=== PATIENT | male | born 1970 | race Caucasian/White ===

== ENCOUNTER → 2016-07-09 | Outpatient (CLI) | payer BC | END | disposition home or self-care (01) | LOC: YCFC.O 09:12 | PROVIDERS: ATTEND Nurse Practitioner Family | DX: M19.90 Unspecified osteoarthritis, unspecified site (principal); E03.9 Hypothyroidism, unspecified; F41.1 Generalized anxiety disorder; E16.2 Hypoglycemia, unspecified ==

== ENCOUNTER → 2017-07-27 | Outpatient (CLI) | payer BC | LOC: LAB.O 11:20 | PROVIDERS: ATTEND Nurse Practitioner Family | DX: E03.9 Hypothyroidism, unspecified (principal) ==

== ENCOUNTER → 2018-06-05 | Outpatient (CLI) | payer BC | LOC: LAB.O 11:05 | PROVIDERS: ATTEND Nurse Practitioner Family | DX: I10 Essential (primary) hypertension (principal); E03.9 Hypothyroidism, unspecified ==

== ENCOUNTER → 2019-08-11 | Outpatient (CLI) | payer BC ==
--- NOTE | 2019-08-12 09:24 | RAD ---
EXAM DESCRIPTION: Lumbar Spine 3 Views CLINICAL HISTORY: LOW BACK PAIN COMPARISON: None Available. TECHNIQUE: X-ray three-view lumbar FINDINGS: There is good alignment of the lumbar spine. There is no fracture or bone lesion. Moderate disc space narrowing L5-S1 with disc space narrowing to a lesser extent L1-2 and L2-3. Posterior fusion L4-5 and probably L5-S1 as well. IMPRESSION: Lumbar disc disease and postop changes as described-no acute process Electronically signed by: Zac Gonzalez MD 08/12/2019 9:23 AM CDT
== END ==
LOC: YCFC.O 14:42
PROVIDERS: ATTEND Nurse Practitioner Family
DX: M51.36 Other intervertebral disc degeneration, lumbar region (principal); Z98.890 Other specified postprocedural states